=== PATIENT | male | born 1975 | race Caucasian/White ===

== ENCOUNTER 2019-09-19 19:21 | Emergency (ER) | payer OTHER ==
[~2019-09-19] VITALS: Ht 172.7 cm; Wt 102.1 kg
[2019-09-19] MEDS ORDERED: DIURETIC (19:33)
[2019-09-19] MEDS ORDERED: BP MED (19:33)
[2019-09-19] MEDS ORDERED: VOLTAREN 50MG T50 MG PO (19:34)
[2019-09-19] MEDS ORDERED: HYDROCHLOROTHIA25 M2 PO (19:35)
[2019-09-19] MEDS ORDERED: SEROPHENE50 MG PO (19:36)
[2019-09-19] MEDS ORDERED: BENICAR20 MG PO (19:36)
[2019-09-19] MEDS ORDERED: SIMVASTATIN80 MG PO (19:37)
[2019-09-19] MEDS ORDERED: PREDNISOLONE ACE5 ML LT. EYE (20:49)
[2019-09-19 21:16] VITALS: BP 161/94
== END 2019-09-19 21:18 | disposition home or self-care (01) ==
LOC: M.ERS 19:21
DX: Z77.098 Contact with and (suspected) exposure to other hazardous, chiefly nonmedicinal, chemicals (principal); H57.11 Ocular pain, right eye; I10 Essential (primary) hypertension

== ENCOUNTER 2021-01-30 19:43 | Emergency (ER) | payer OTHER ==
[~2021-01-30] VITALS: Ht 172.7 cm; Wt 104.3 kg
[~2021-01-30 19:43] MED LIST: BENICAR20 MG PO; BP MED; DIURETIC; HYDROCHLOROTHIA25 M2 PO; PREDNISOLONE ACE5 ML LT. EYE; SEROPHENE50 MG PO; SIMVASTATIN80 MG PO; VOLTAREN 50MG T50 MG PO
[2021-01-30] MEDS ORDERED: DOXYCYCLINE 10100 MG PO (22:58)
[2021-01-30 23:13] VITALS: BP 141/70
== END 2021-01-30 23:14 | disposition home or self-care (01) ==
LOC: M.ERS 19:43
DX: S30.860A Insect bite (nonvenomous) of lower back and pelvis, initial encounter (principal); I10 Essential (primary) hypertension; Z79.899 Other long term (current) drug therapy; W57.XXXA Bitten or stung by nonvenomous insect and other nonvenomous arthropods, initial encounter; Y93.89 Activity, other specified; Y92.89 Other specified places as the place of occurrence of the external cause; Y99.8 Other external cause status